=== PATIENT | female | born 1935 | race Caucasian/White ===

== ENCOUNTER → 2019-03-07 14:10 | Outpatient (BNVA) | payer MEDICARE, MEDICAID, SELFPAY | PROVIDERS: Referring Provider Legal Medicine; Visit Provider Nurse Practitioner Gerontology | DX: N20.0 Calculus of kidney (principal); N39.0 Urinary tract infection, site not specified; R35.0 Frequency of micturition; G20 Parkinson's disease | CPT/HCPCS: 51798; 81003; 99204 ==

== ENCOUNTER 2019-03-07 16:39 | Outpatient (CLI) | payer MEDICARE, MEDICAID, SELFPAY ==
--- NOTE | 2019-03-07 15:30 | DI.RAD_ITS ---
SYMPTOM/DIAGNOSIS: H/O RENAL CALCULI, MONITORING OF KIDNEY STONES, Z87.442 KUB: No priors. The right kidney is largely obscured by overlying bowel but there does appear to be an 8 mm. calcification projected over the upper pole of the right kidney suggestive a non obstructing stone. No other urinary tract calculi are identified. There are degenerative changes seen in the spine with compression deformities involving L 1 and L 2 which appear old. The bones appear osteopenic. 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 There is a large amount of stool in the colon which may reflect constipation. IMPRESSION: 1. Findings suspicious for right nephrolithiasis. 2. Chronic osseous abnormalities including compression deformities at L 1 and L 2 and orthopedic surgery involving both hips. 3. Findings suggestive of constipation.
== END 2019-03-07 16:59 ==
PROVIDERS: Visit Provider Nurse Practitioner Gerontology
DX: N20.0 Calculus of kidney (principal); K59.00 Constipation, unspecified; M85.88 Other specified disorders of bone density and structure, other site; Z96.642 Presence of left artificial hip joint; N39.0 Urinary tract infection, site not specified; R35.0 Frequency of micturition; G20 Parkinson's disease
CPT/HCPCS: 51798; 81003; 99204; 74018

== ENCOUNTER 2019-03-07 16:55 | Outpatient (REF) | payer MEDICARE, MEDICAID, SELFPAY | END 2019-03-07 17:15 | LOC: LBN 16:55 | PROVIDERS: Visit Provider Nurse Practitioner Gerontology | DX: R31.9 Hematuria, unspecified (principal) | CPT/HCPCS: 87077; 87086 ==

== ENCOUNTER → 2019-09-05 11:03 | Outpatient (BNVA) | payer MEDICARE, MEDICAID, SELFPAY | PROVIDERS: Visit Provider Nurse Practitioner Gerontology | DX: N20.0 Calculus of kidney (principal); R35.0 Frequency of micturition; Z87.440 Personal history of urinary (tract) infections; Z87.442 Personal history of urinary calculi | CPT/HCPCS: 99213 ==